=== PATIENT | female | born 1975 | race Caucasian/White ===

== ENCOUNTER 2021-01-30 15:14 | Emergency (ER) | payer BC ==
--- NOTE | 2021-01-30 17:16 | EDM.PDOC ---
<Aguilar Benavidez - Last Filed: 01/30/21 20:57> ED HPI GENERAL MEDICAL PROBLEM - General Chief Complaint: Abdominal Pain Stated Complaint: UPPER ABDOMINAL PAIN Time Seen by Provider: 01/30/21 17:16 - History of Present Illness INITIAL COMMENTS - FREE TEXT/NARRATIVE: 45-year-old female presents the emergency room with upper abdominal pain. This pain started after eating some vegetables and a pork chop. It is mostly right upper quadrant. Associated with some nausea vomiting and significant discomfort. She is not aware of any fevers or chills. She has never had pain like this in the past. She has no history of abdominal surgeries. She doubts any possibility of being . The patient has not had pain like this in the past. She has not had any reflux-like symptoms or any other abdominal pain. Upper Abdomen Pain Score (Numeric/FACES): 9 - Related Data Allergies Allergy/AdvReac Type Severity Reaction Status Date / Time No Known Allergies Allergy Verified 01/30/21 16:01 Home Meds: Home Meds . [No Known Home Meds] 01/30/21 [History] Past Medical History Musculoskeletal History: Reports: Fracture - Past Surgical History Musculoskeletal Surgical History: Reports: Arthroscopic Knee, ORIF, Other (See Below) Other Musculoskeletal Surgeries/Procedures:: bone spur removal Social & Family History - Tobacco Use Tobacco Use Status *Q: Never Tobacco User - Recreational Drug Use Recreational Drug Use: No ED ROS GENERAL - Review of Systems Review Of Systems: See Below Constitutional: Reports: No Symptoms, Weight Gain Respiratory: Reports: No Symptoms Cardiovascular: Reports: No Symptoms GI/Abdominal: Reports: Abdominal Pain, Nausea, Vomiting. Denies: Constipation, Diarrhea : Reports: No Symptoms Musculoskeletal: Reports: No Symptoms Skin: Reports: No Symptoms Neurological: Reports: No Symptoms ED EXAM, GI/ABD - Physical Exam Exam: See Below Exam Limited By: No Limitations General Appearance: Alert, No Apparent Distress Head: Atraumatic, Normocephalic Neck: Normal Inspection, Supple, Non-Tender, Full Range of Motion Respiratory/Chest: No Respiratory Distress, Lungs Clear, Normal Breath Sounds Cardiovascular: Regular Rate, Rhythm, No Edema, No Murmur GI/Abdominal Exam: Normal Bowel Sounds, Soft, Tender (Significant right upper quadrant tenderness with palpation), Other (Significant obesity). No: Non- Tender, Guarding, Rigid, Rebound Back Exam: Normal Inspection, Full Range of Motion. No: CVA Tenderness (L), CVA Tenderness (R) Neurological: Alert, Oriented, Normal Cognition Course - Re-Assessments/Exams Free Text/Narrative Re-Assessment/Exam: 01/30/21 21:18 Gallbladder ultrasound shows normal gallbladder wall and common bile duct however is multiple gallstones noted. Patient's white count is approaching 22,000 no history of fevers no documented fever here in the emergency department. I discussed the situation with Dr. Victoria, our on-call surgeon who recommends checking a CT. We should also start antibiotics will start her on Flagyl and Zosyn as the source of this white count could be something other than her gallbladder. I have discussed these findings with the patient and she understands. I will also check a urinalysis as initially I did not check 1 with right upper quadrant tenderness but something else could be causing this white count. At this time is change of shift further care and disposition per Dr. Rg. Departure - Departure Disposition: DC/Tfer to Acute Hospital 02 Clinical Impression: Left shift Cholelithiasis Qualifiers: Cholelithiasis location: gallbladder Cholecystitis presence: with cholecystitis Cholecystitis acuity: acute Biliary obstruction: without biliary obstruction Qualified Code(s): K80.00 - Calculus of gallbladder with acute cholecystitis without obstruction Cholecystitis with cholelithiasis Qualifiers: Cholelithiasis location: gallbladder Cholecystitis acuity: acute Biliary obstruction: without biliary obstruction Qualified Code(s): K80.00 - Calculus of gallbladder with acute cholecystitis without obstruction Elevated white blood cell count Qualifiers: Leukocytosis type: bandemia Qualified Code(s): D72.825 - Bandemia - Discharge Information Sepsis Event Note (ED) - Evaluation Sepsis Screening Result: No Definite Risk <Parrish Rg H - Last Filed: 01/31/21 03:22> Course - Vital Signs Last Recorded V/S: Last Vital Signs Temp 99.2 F 01/30/21 23:48 Pulse 80 01/30/21 23:48 Resp 16 01/30/21 23:48 BP 143/77 H 01/30/21 23:48 Pulse Ox 93 L 01/30/21 23:48 - Orders/Labs/Meds Orders: Active Orders 24 hr Category Date Time Status Abdomen Pelvis w Cont [CT] Stat Exams 01/30/21 21:07 Taken Labs: Laboratory Tests 01/30/21 01/30/21 01/30/21 Range/Units 17:50 17:50 21:21 WBC 21.67 H (3.98-10.04) K/mm3 RBC 5.19 (3.98-5.22) M/mm3 Hgb 14.5 (11.2-15.7) gm/dl Hct 44.3 (34.1-44.9) % MCV 85.4 (79.4-94.8) fl MCH 27.9 (25.6-32.2) pg MCHC 32.7 (32.2-35.5) g/dl RDW Std Deviation 42.9 (36.4-46.3) fL Plt Count 401 H (182-369) K/mm3 MPV 9.6 (9.4-12.3) fl Neut % (Auto) 87.7 H (34.0-71.1) % Lymph % (Auto) 7.2 L (19.3-51.7) % Latimer % (Auto) 4.5 L (4.7-12.5) % Eos % (Auto) 0 L (0.7-5.8) Baso % (Auto) 0.1 (0.1-1.2) % Neut # (Auto) 19.00 H (1.56-6.13) K/mm3 Lymph # (Auto) 1.55 (1.18-3.74) K/mm3 Latimer # (Auto) 0.98 H (0.24-0.36) K/mm3 Eos # (Auto) 0.01 L (0.04-0.36) K/mm3 Baso # (Auto) 0.03 (0.01-0.08) K/mm3 Manual Slide Review Abnormal smear Sodium 140 (136-145) mEq/L Potassium 3.8 (3.5-5.1) mEq/L Chloride 103 (98-107) mEq/L Carbon Dioxide 27 (21-32) mEq/L Anion Gap 13.8 (5-15) BUN 9 (7-18) mg/dL Creatinine 0.8 (0.55-1.02) mg/dL Est Cr Clr Drug Dosing 74.23 mL/min Estimated GFR (MDRD) > 60 (>60) mL/min BUN/Creatinine Ratio 11.3 L (14-18) Glucose 148 H (74-106) mg/dL Calcium 9.2 (8.5-10.1) mg/dL Total Bilirubin 0.4 (0.2-1.0) mg/dL Direct Bilirubin 0.10 (0.0-0.2) mg/dl AST 18 (15-37) U/L ALT 30 (14-59) U/L Alkaline Phosphatase 78 (46-116) U/L Total Protein 7.0 (6.4-8.2) g/dl Albumin 3.2 L (3.4-5.0) g/dl Globulin 3.8 gm/dL Albumin/Globulin Ratio 0.8 L (1-2) Lipase 80 (73-393) U/L Urine Color Yellow (Yellow) Urine Appearance Clear (Clear) Urine pH 5.5 (5.0-8.0) Ur Specific [place] > or = 1.030 (1.005-1.030) Urine Protein 1+ H (Negative) Urine Glucose (UA) Negative (Negative) Urine Ketones 3+ H (Negative) Urine Occult Blood Negative (Negative) Urine Nitrite Negative (Negative) Urine Bilirubin 1+ H (Negative) Urine Urobilinogen 0.2 (0.2-1.0) Ur Leukocyte Esterase Negative (Negative) Urine RBC 0-5 (0-5) /hpf Urine WBC 0-5 (0-5) /hpf Ur Squamous Epith Cells 5-10 H (0-5) /hpf Urine Bacteria Few (FEW) /hpf Urine Mucus Moderate H (FEW) /hpf SARS-CoV-2 RNA (HAILEE) (NEGATIVE) 01/30/21 Range/Units 23:49 WBC (3.98-10.04) K/mm3 RBC (3.98-5.22) M/mm3 Hgb (11.2-15.7) gm/dl Hct (34.1-44.9) % MCV (79.4-94.8) fl MCH (25.6-32.2) pg MCHC (32.2-35.5) g/dl RDW Std Deviation (36.4-46.3) fL Plt Count (182-369) K/mm3 MPV (9.4-12.3) fl Neut % (Auto) (34.0-71.1) % Lymph % (Auto) (19.3-51.7) % [place]imer % (Auto) (4.7-12.5) % Eos % (Auto) (0.7-5.8) Baso % (Auto) (0.1-1.2) % Neut # (Auto) (1.56-6.13) K/mm3 Lymph # (Auto) (1.18-3.74) K/mm3 [place] # (Auto) (0.24-0.36) K/mm3 Eos # (Auto) (0.04-0.36) K/mm3 Baso # (Auto) (0.01-0.08) K/mm3 Manual Slide Review Sodium (136-145) mEq/L Potassium (3.5-5.1) mEq/L Chloride (98-107) mEq/L Carbon Dioxide (21-32) mEq/L Anion Gap (5-15) BUN (7-18) mg/dL Creatinine (0.55-1.02) mg/dL Est Cr Clr Drug Dosing mL/min Estimated GFR (MDRD) (>60) mL/min BUN/Creatinine Ratio (14-18) Glucose (74-106) mg/dL Calcium (8.5-10.1) mg/dL Total Bilirubin (0.2-1.0) mg/dL Direct Bilirubin (0.0-0.2) mg/dl AST (15-37) U/L ALT (14-59) U/L Alkaline Phosphatase (46-116) U/L Total Protein (6.4-8.2) g/dl Albumin (3.4-5.0) g/dl Globulin gm/dL Albumin/Globulin Ratio (1-2) Lipase (73-393) U/L Urine Color (Yellow) Urine Appearance (Clear) Urine pH (5.0-8.0) Ur Specific [place] (1.005-1.030) Urine Protein (Negative) Urine Glucose (UA) (Negative) Urine Ketones (Negative) Urine Occult Blood (Negative) Urine Nitrite (Negative) Urine Bilirubin (Negative) Urine Urobilinogen (0.2-1.0) Ur Leukocyte Esterase (Negative) Urine RBC (0-5) /hpf Urine WBC (0-5) /hpf Ur Squamous Epith Cells (0-5) /hpf Urine Bacteria (FEW) /hpf Urine Mucus (FEW) /hpf SARS-CoV-2 RNA (HAILEE) Negative (NEGATIVE) Meds: Medications Discontinued Medications Generic Name Dose Route Start Last Admin Trade Name Mireille PRN Reason Stop Dose Admin Fentanyl 50 mcg 01/30/21 18:56 01/30/21 19:01 Fentanyl 100 Mcg/2 Ml Sdv IVPUSH 01/30/21 18:57 50 mcg ONETIME STA Administration Lactated Ringer's 1,000 mls @ 999 mls/hr 01/30/21 17:32 01/30/21 17:53 Ringers, Lactated IV 01/30/21 18:32 999 mls/hr .BOLUS ONE Administration Metronidazole 500 mg/ Premix 100 mls @ 100 mls/hr 01/30/21 21:07 01/30/21 21:24 IV 01/30/21 22:06 100 mls/hr ONETIME ONE Administration Piperacillin Sod/Tazobactam 100 mls @ 200 mls/hr 01/30/21 21:23 01/30/21 21:24 Sod 4.5 gm/ Sodium Chloride IV 01/30/21 21:52 200 mls/hr ONETIME ONE Administration Sodium Chloride 100 mls @ 60 drops/min 01/30/21 23:30 01/30/21 23:18 Normal Saline IV 60 drops/min ASDIRECTED TOM Administration Lactated Ringer's 1,000 mls @ 150 mls/hr 01/31/21 00:01 01/31/21 00:11 Ringers, Lactated IV 01/31/21 06:40 150 mls/hr .BOLUS ONE Administration Iopamidol 100 ml 01/30/21 23:17 01/30/21 23:18 Iopamidol 612 Mg/Ml 100 Ml Bottle IVPUSH 01/30/21 23:18 100 ml ONETIME ONE Administration Ondansetron HCl 4 mg 01/30/21 17:32 01/30/21 17:53 Ondansetron 4 Mg/2 Ml Sdv IVPUSH 01/30/21 17:33 4 mg ONETIME ONE Administration Piperacillin Sod/Tazobactam Sod Confirm 01/30/21 21:18 01/30/21 21:25 Piperacillin/Tazobactam 4.5 Gm Advvial Administered 01/30/21 21:19 Not Given Dose 4.5 gm .ROUTE .STK-MED ONE Sodium Chloride 10 ml 01/30/21 23:30 01/30/21 23:18 Sodium Chloride 0.9% 10 Ml Syringe FLUSH 10 ml BOLUS TOM Administration - Re-Assessments/Exams Free Text/Narrative Re-Assessment/Exam: 01/30/21 23:[address] scan shows cholelithiasis with cholecystitis and gallbladder is distended. Her vital signs shows a blood pressure of 143/77. She is comfortable at this time. I did call [facility] per the patient's request and I spoke to Dr. Cardoza the surgeon and Dr. Howe the hospitalist and they agreed to accept her in transport to [facility] for admission and further evaluation. Her diagnosis is cholelithiasis with cholecystitis and an elevated white count with a left shift. 01/30/21 23:57 I explained to the patient that she will be transported to [facility] and Dr. Cardoza is the surgeon and Dr. Howe is the hospitalist will admit her to the hospital for additional antibiotic therapy. 01/31/21 03:21 Patient did fine during her stay in the ER and she was transported by [facility] ambulance to [facility] for further evaluation by Dr. Howe and Dr. Cardoza. Departure - Departure Time of Disposition: 23:49 Condition: Fair Sepsis Event Note (ED) - Focused Exam Vital Signs: Vital Signs Temp Pulse Resp BP Pulse Ox 01/30/21 23:48 99.2 F 80 16 143/77 H 93 L 01/30/21 15:58 97.2 F 85 18 180/89 H 96 ED Communication - ED Communication Date/Time Date: 01/30/21 Time Called: 23:49 - Discussed Case With (1) Discussed Case With (1): Admitting Provider, Other Provider Person/s Notified (1): Dr. Howe (She agrees to accept the patient in transport to [facility]) Person/s Notified (2): Dr. Cardoza (Agrees to consult regarding her gallbladder pathology.)
[2021-01-30] MEDS ORDERED: Ondansetron 4 MG/2 ML SDV IVPUSH ONE (17:32)
[2021-01-30] MEDS ORDERED: Lactated Ringers 1,000 ML IV ONE (17:32)
--- NOTE | 2021-01-30 18:46 | US ---
Limited abdominal ultrasound: Multiple real-time images of the upper right abdomen were obtained. Comparison: No prior abdominal imaging is available. Technologist's note: Suboptimal exam due to body habitus. Findings: Liver is not optimally seen, no discrete abnormality is noted. Multiple gallstones are seen. Gallbladder wall is normal. No biliary duct dilatation is seen. Proximal aorta shows no discrete aneurysm. Pancreas is not optimally seen. No discrete abnormality is otherwise identified within the pancreas. Inferior vena cava shows no discrete filling defects. Main portal vein shows normal hepatopedal flow. Right kidney shows no hydronephrosis with a length of 10.3 cm. Impression: 1. Multiple gallstones. Normal gallbladder wall thickening with no biliary duct dilatation. 2. Other portions of the study are somewhat suboptimal as noted above. No additional abnormality is appreciated. Diagnostic code #3
[2021-01-30] MEDS ORDERED: fentaNYL 100 MCG/2 ML SDV IVPUSH STA (18:56)
[2021-01-30] MEDS ORDERED: metroNIDAZOLE/Normal Saline 500 MG in Premix Bag 1 BAG IV ONE (21:07)
[2021-01-30] MEDS ORDERED: Piperacillin/Tazobactam 4.5 GM in Sodium Chloride 0.9% 100 ML IV SCH (21:15)
[2021-01-30] MEDS ORDERED: Piperacillin/Tazobactam 4.5 GM AdvVial ONE (21:18)
[2021-01-30] MEDS ORDERED: Piperacillin/Tazobactam 4.5 GM in Sodium Chloride 0.9% 100 ML IV ONE (21:23)
[2021-01-30] MEDS ORDERED: Iopamidol 612 MG/ML 100 ML Bottle IVPUSH ONE (23:17)
[2021-01-30] MEDS ORDERED: Sodium Chloride 0.9% 100 ML IV SCH (23:30)
[2021-01-30] MEDS ORDERED: Sodium Chloride 0.9% 10 ML Syringe FLUSH SCH (23:30)
[2021-01-31] MEDS ORDERED: Lactated Ringers 1,000 ML IV ONE (00:01)
--- NOTE | 2021-01-31 09:51 | CT ---
CT abdomen and pelvis Technique: Multiple axial sections were obtained from above the dome of the diaphragm inferiorly through the pubic symphysis. Intravenous contrast and oral contrast was given. Delayed images were also obtained through the abdomen and pelvis. Reconstructed coronal and sagittal images were obtained. Comparison: Prior abdominal ultrasound study of 01/30/21. Findings: Visualized lung bases show nothing acute. Cystic change is seen next to the right heart measuring up to 5 cm. This is most likely representing a small pericardial cyst. Diffuse fatty infiltration is seen within the liver. Spleen appears normal. Gallbladder shows vague gallstones. Gallbladder shows mild inflammatory change suspicious for cholecystitis which has increased from prior ultrasound. Adrenal glands show no nodule. Pancreas shows no abnormality. Kidneys show symmetric contrast enhancement without hydronephrosis or mass. Abdominal aorta shows no aneurysm. No retroperitoneal adenopathy or mesenteric abnormalities are seen. No pelvic mass or adenopathy is seen. Appendix is seen which is normal. Delayed images shows contrast within the ureters and within the bladder. Bone window settings were reviewed and show mild scattered degenerative change within the spine. Impression: 1. Several vague gallstones within the gallbladder. Mild inflammatory change is seen around the gallbladder. Findings are compatible with cholecystitis which has appeared from recent ultrasound. 2. Fatty infiltration within the liver. 3. Pericardial cyst. 4. No other acute abnormality is appreciated. 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
== END 2021-01-31 00:29 ==
LOC: JD.ED 15:14
DX: K80.00 Calculus of gallbladder with acute cholecystitis without obstruction (principal); D72.825 Bandemia; Z20.822 Contact with and (suspected) exposure to COVID-19
CPT/HCPCS: 36415; 74177; 76705; 80053; 81001; 82248; 83690; 85025; 87635; 96365; 96368; 96375; 99285; J2405; J2543; J3010; J3490; J7120; Q9967; U0002